=== PATIENT | male | born 1960 | race Caucasian/White ===

== ENCOUNTER 2024-01-24 07:56 | Day surgery (SDC) | payer OTHER ==
[~2024-01-24] VITALS: Ht 177.8 cm; Wt 108.9 kg
[2024-01-24] MEDS ORDERED: fentaNYL CITRATE/PF 100 MCG/2 ML AMP ONE (09:03)
[2024-01-24] MEDS ORDERED: MIDAZOLAM HCL 5 MG/5 ML VIAL ONE (09:03)
[2024-01-24 14:03] VITALS: BP_SYST 133; PULSE 60; RESP 20; TEMP 97.1; O2SAT 95
== END 2024-01-24 11:34 | disposition home or self-care (01) ==
LOC: SDS 07:56 → SMU 07:57 → SDS 11:34
PROVIDERS: ATTEND Internal Medicine
DX: Z12.11 Encounter for screening for malignant neoplasm of colon (principal); D12.4 Benign neoplasm of descending colon; K62.1 Rectal polyp; K57.30 Diverticulosis of large intestine without perforation or abscess without bleeding; K64.8 Other hemorrhoids; E11.9 Type 2 diabetes mellitus without complications; E78.00 Pure hypercholesterolemia, unspecified; G47.30 Sleep apnea, unspecified; Z79.84 Long term (current) use of oral hypoglycemic drugs; Z79.899 Other long term (current) drug therapy; Z87.891 Personal history of nicotine dependence; Z86.010 Personal history of colon polyps
CPT/HCPCS: 45385; 82948; 88305; 99152; G0378; J2250; J3010